=== PATIENT | female | born 1980 | race Caucasian/White ===

== ENCOUNTER 2021-07-18 05:38 | Day surgery (SDC) | payer MEDICARE, MEDICAID ==
[2021-07-17 10:06] VITALS: BMI 31.6
[2021-07-18] MEDS ORDERED: Fentanyl 100 MCG/2 ML VIAL ONE ×4 (06:49→08:49)
[2021-07-18] MEDS ORDERED: Ketamine 50 MG/ML (10ML VIAL) ONE (06:49)
[2021-07-18] MEDS ORDERED: Midazolam HCl 2 mg/2 ml Vial ONE (07:17)
[2021-07-18] MEDS ORDERED: Acetaminophen 500 MG TAB ONE (07:17)
[2021-07-18] MEDS ORDERED: PROPOFOL 200 MG/20 ML VIAL ONE (07:51)
[2021-07-18] MEDS ORDERED: Ondansetron PF 4 MG/2 ML Vial ONE (07:51)
[2021-07-18] MEDS ORDERED: Lidocaine 1% PF 5 ML VIAL ONE (07:51)
[2021-07-18] MEDS ORDERED: Dexamethasone 20 MG/5 ML VIAL ONE (07:51)
[2021-07-18] MEDS ORDERED: Succinylcholine 200 MG/10 ml SYRINGE FS ONE (07:51)
[2021-07-18] MEDS ORDERED: methylPREDNISolone Acetate 40 mg/ml Vial ONE (07:56)
[2021-07-18] MEDS ORDERED: Morphine 4 MG/ML VIAL ONE (08:26)
[2021-07-18] MEDS ORDERED: diphenhydrAMINE 50 MG/ML VIAL ONE (08:32)
[2021-07-18] MEDS ORDERED: Promethazine HCl 25 MG/ML VIAL ONE (09:28)
== END 2021-07-18 10:10 | disposition home or self-care (01) ==
LOC: SDC 05:38
PROVIDERS: ATTEND Otolaryngology Plastic Surgery within the Head & Neck
PROC: 0CTPXZZ Resection of Tonsils, External Approach (ICD-10-PCS; principal; 2021-07-18)
PROC: 0CTQXZZ Resection of Adenoids, External Approach (ICD-10-PCS; 2021-07-18)
DX: J35.03 Chronic tonsillitis and adenoiditis (principal); J03.91 Acute recurrent tonsillitis, unspecified; G47.33 Obstructive sleep apnea (adult) (pediatric); E89.2 Postprocedural hypoparathyroidism; Z79.899 Other long term (current) drug therapy; Z91.018 Allergy to other foods; Z94.0 Kidney transplant status
CPT/HCPCS: 85014; 88304; J1100; J1200; J2250; J2270; J2405; J2550; J2704; J2920; J3010